=== PATIENT | male | born 1970 | race Caucasian/White ===

== ENCOUNTER 2018-07-22 19:10 | Emergency (ER) | payer MEDICAID ==
[~2018-07-22] VITALS: Ht 182.9 cm; Wt 90.3 kg
[2018-07-22 19:17] VITALS: BP 150/93
[2018-07-22] MEDS ORDERED: HYDROcodone/APAP 5/325 TABLET PO STA (19:40)
[2018-07-22] MEDS ORDERED: KETOROLAC 30 MG/1 ML ONE (19:48)
[2018-07-22] MEDS ORDERED: HYDROcodone/APAP 5/325 TABLET ONE (19:48)
[2018-07-22] MEDS ORDERED: KETOROLAC 60 MG/2 ML IM ONE (20:00)
== END 2018-07-22 20:26 | disposition home or self-care (01) ==
LOC: ED 20:05
DX: M13.171 Monoarthritis, not elsewhere classified, right ankle and foot (principal); F17.200 Nicotine dependence, unspecified, uncomplicated
CPT/HCPCS: 96372; 99283; J1885

== ENCOUNTER 2019-03-26 15:23 | Emergency (ER) | payer MEDICAID, OTHER ==
[2019-03-26 15:26] VITALS: BP 160/90
== END 2019-03-26 16:40 | disposition home or self-care (01) ==
LOC: ED 16:22
DX: S86.112A Strain of other muscle(s) and tendon(s) of posterior muscle group at lower leg level, left leg, initial encounter (principal); X58.XXXA Exposure to other specified factors, initial encounter; Y93.89 Activity, other specified; Y92.89 Other specified places as the place of occurrence of the external cause; Y99.8 Other external cause status
CPT/HCPCS: 73564; 73610; 93971; 96372; 99284; J1885